=== PATIENT | male | born 1955 | race Caucasian/White ===

== ENCOUNTER 2022-03-20 06:38 | Day surgery (SDC) | payer MEDICARE, BC ==
[~2022-03-20 06:38] MED LIST: Dextrose 5%-0.45% NaCl 1,000 ML IV SCH; Midazolam 1 MG/ML 2 ML SDV ONE; fentaNYL 100 MCG/2 ML SDV ONE
[2022-03-20] MEDS ORDERED: fentaNYL 100 MCG/2 ML SDV IV ONE ×4 (06:39→07:53)
[2022-03-20] MEDS ORDERED: Midazolam 1 MG/ML 2 ML SDV IV ONE ×7 (06:39→07:50)
[2022-03-20 12:01] VITALS: BP 121/66; PULSE 61
== END 2022-03-20 09:35 | disposition home or self-care (01) ==
LOC: DL.ENDO 06:38
PROVIDERS: ATTEND Internal Medicine Gastroenterology
DX: Z12.11 Encounter for screening for malignant neoplasm of colon (principal); K57.30 Diverticulosis of large intestine without perforation or abscess without bleeding; I12.9 Hypertensive chronic kidney disease with stage 1 through stage 4 chronic kidney disease, or unspecified chronic kidney disease; N18.9 Chronic kidney disease, unspecified; E66.09 Other obesity due to excess calories; F32.A Depression, unspecified; E78.5 Hyperlipidemia, unspecified; G47.30 Sleep apnea, unspecified; Z79.899 Other long term (current) drug therapy
CPT/HCPCS: G0121; J2250; J3010; J7042

== ENCOUNTER 2022-06-26 11:49 | Emergency (ER) | payer MEDICARE, BC ==
[2022-06-26 12:24] VITALS: BP 137/78; PULSE 86
[2022-06-26 12:59] LABS: RESPIRATORY SYNCYTIAL VIR NAA NEGATIVE (NEGATIVE)
[2022-06-26 13:01] LABS: CORONAVIRUS COVID-19 NAA POSITIVE (NEGATIVE)
[2022-06-26 13:58] LABS: ANION GAP 16.3 mEq/L (7-13); CHLORIDE,CL 101 mmol/L (98-107); SODIUM,NA 137 mmol/L (136-145)
[2022-06-26 13:59] LABS: ESTIMATED GFR 62 mL/min (>=60)
== END 2022-06-26 14:28 | disposition home or self-care (01) ==
LOC: DL.ED 11:49
DX: U07.1 COVID-19 (principal); E78.00 Pure hypercholesterolemia, unspecified; I12.9 Hypertensive chronic kidney disease with stage 1 through stage 4 chronic kidney disease, or unspecified chronic kidney disease; E11.22 Type 2 diabetes mellitus with diabetic chronic kidney disease; N18.9 Chronic kidney disease, unspecified; M19.90 Unspecified osteoarthritis, unspecified site; Z79.02 Long term (current) use of antithrombotics/antiplatelets; Z79.899 Other long term (current) drug therapy
CPT/HCPCS: 0241U; 36415; 71046; 80053; 83605; 83735; 83880; 85025; 99284; 99285

== ENCOUNTER 2023-09-23 07:50 | Day surgery (SDC) | payer MEDICARE, BC ==
[2023-09-23] MEDS: Proparacaine 0.5% Ophth Soln 15 ML Bottle EYERT ONE ×3 (06:41→08:57)
[2023-09-23] MEDS: Povidone-Iodine 5% Sterile Ophth Soln 30 ML Bottle EYERT ONE ×3 (06:42→08:57)
[2023-09-23] MEDS: Balanced Salt Solution Ophth Irrig 500 ML Bottle IOCULAR ONE ×2 (06:43→09:02)
[2023-09-23] MEDS: Lidocaine 1% 30 ML SDV ONE ×2 (06:43→09:01)
[2023-09-23] MEDS: Vancomycin 500 MG SDV EYERT ONE ×2 (06:43→09:02)
[2023-09-23] MEDS: Chondroitin Sulfate/Hyaluronate Sodium Ophth Inj 0.75 ML Syringe EYERT ONE ×2 (06:44→09:02)
[2023-09-23] MEDS: Apraclonidine 0.5% Ophth Soln 5 ML Bot EYERT ONE ×2 (06:45→09:10)
[2023-09-23] MEDS: Diclofenac Sodium 0.1% Ophth Soln 5 ML Bottle EYERT ONE ×2 (06:46→09:10)
[2023-09-23] MEDS: Dexamethasone/Neomycin/Polymyxin B Ophth Oint 3.5 GM Tube EYERT ONE ×2 (06:46→09:10)
[2023-09-23] MEDS ORDERED: Ondansetron 4 MG/2 ML SDV IVPUSH PRN (08:00)
[2023-09-23] MEDS ORDERED: Acetaminophen 325 MG Tab PO PRN (08:00)
[2023-09-23] MEDS ORDERED: Acetaminophen/Codeine 300-30 MG Tab PO PRN (08:00)
[2023-09-23] MEDS: Phenylephrine 10% Ophth Soln 5 ML Bot EYERT ONE (08:17)
[2023-09-23] MEDS: Sodium Chloride 0.9% 10 ML Syringe FLUSH PRN (08:17)
[2023-09-23] MEDS: Moxifloxacin 0.5% Ophth Soln 3 ML Bottle EYERT ONE (08:17)
[2023-09-23] MEDS: Timolol Maleate 0.5% Ophth Soln 5 ML Bottle EYERT ONE (08:17)
[2023-09-23] MEDS: Tropicamide 1% Ophth Soln 15 ML Bottle EYERT ONE (08:17)
[2023-09-23] MEDS: Cataract Ophth Solution EYERT ONE (08:18)
[2023-09-23 09:42] VITALS: BP 124/66; PULSE 66
== END 2023-09-23 09:46 ==
LOC: DL.SDS 07:50
PROVIDERS: ATTEND Ophthalmology
DX: E11.36 Type 2 diabetes mellitus with diabetic cataract (principal); H25.811 Combined forms of age-related cataract, right eye; E78.5 Hyperlipidemia, unspecified; G47.33 Obstructive sleep apnea (adult) (pediatric); F32.A Depression, unspecified; Z79.82 Long term (current) use of aspirin; Z79.899 Other long term (current) drug therapy
CPT/HCPCS: 66984; A9270; J3370; V2787; 00142; J3490